=== PATIENT | male | born 1985 | race Hispanic/Latino ===

== ENCOUNTER 2019-02-22 01:04 | Emergency (ER) | payer SELFPAY ==
[2019-02-22] MEDS ORDERED: Adacel (T-DAP) 0.5 ML SYRINGE ONE (01:13)
[2019-02-22] MEDS ORDERED: Proparacaine 0.5% Opth 15 ML BOT ONE (01:13)
[2019-02-22] MEDS ORDERED: Fluorescein Opthalmic Strip ONE (01:13)
--- NOTE | 2019-02-22 07:45 | CT ---
CT Facial Bones WO Con History: [Glass foreign body in eye.] Comparison: None. Findings: No radiopaque foreign object is appreciated. There is abnormal hydration of the right lens relative to the left lens. There is asymmetric enlargement of the anterior chamber of the right eye relative to the left eye. Impression: Abnormally hydrated right lens relative to the left may be post traumatic in nature. There is also ab normal enlargement of the anterior chamber right eye relative to the left eye. Ophthalmologic consultation is strongly advised. These findings are discordant with the preliminary report. Code: Jeremiah
== END 2019-02-22 02:07 | disposition short-term general hospital (02) ==
LOC: ERS 01:04
DX: S05.51XA Penetrating wound with foreign body of right eyeball, initial encounter (principal); F17.200 Nicotine dependence, unspecified, uncomplicated; W45.8XXA Other foreign body or object entering through skin, initial encounter
CPT/HCPCS: 70486; 90471; 90715; 96365; J0690

== ENCOUNTER 2019-03-22 03:03 | Emergency (ER) | payer SELFPAY ==
[2019-03-22] MEDS ORDERED: Bacitracin 1 PK ONE (03:20)
--- NOTE | 2019-03-22 07:50 | CT ---
PRELIMINARY REPORT/[facility]/EMERGENCY AFTER HOURS PROCEDURE: EXAM: CT Head Without Contrast EXAM DATE/TIME: 03/22/2019 3:31 AM CLINICAL HISTORY: 33 years old, male; Injury or trauma; Fall; Initial encounter; Blunt trauma (contusions or hematomas) ; Patient HX: 33 y/o m presents to ED C/O injury caused by broken window. PT states he was knocking on a window at his house, which caused the break and cut his L arm. He also notes that he fe ll as the glass broke, hitting his head on a nearby chair. He suspects loc though is not sure. Family did not witness the event. TECHNIQUE: Imaging protocol: Axial computed tomography images of the head without contrast. COMPARISON: No relevant prior studies available. FINDINGS: Brain: Normal. No hemorrhage. Unremarkable white matter. No mass effect. Ventricles: Normal. No ventriculomegaly. Bones/joints: Unremarkable. No acute fracture. Sinuses: Visualized sinuses are unremarkable. No fluid levels. Mastoid air cells: Visualized mastoid air cells are well aerated. No mastoid effusion. Soft tissues: Unremarkable. IMPRESSION: No acute intracranial abnormality. Thank you for allowing us to participate in the care of your patient. Dictated and Authenticated by: Jose Alves MD 03/22/2019 3:40 AM Central Time ([place] & [place]) FINAL REPORT: Emergency after-hours study CT BRAIN NONCONTRAST: DATE: 03/22/2019. HISTORY: 33-year-old male status post acute head trauma, fall. FINDINGS: There is no evidence of acute intra-axial or extra-axial hemorrhage. There is no midline shift or any other mass effect. There is no extra-axial fluid collection. The ventricles are normal in size and configuration. The tympanomastoid cavities, and the upper portions of the paranasal sinuses included in these images, are grossly clear. Calvarium is intact. Agree with preliminary report by [facility]. IMPRESSION: Normal. Transcribed Date/Time: 03/22/2019 8:03 AM
--- NOTE | 2019-03-22 08:21 | RAD ---
Radiograph left forearm 2 views: HISTORY: Laceration FINDINGS: No radiopaque foreign body or subcutaneous emphysema. No fracture or any other osseous abnormality in volving radius or ulna. IMPRESSION: Negative
== END 2019-03-22 04:10 | disposition home or self-care (01) ==
LOC: ERS 03:03
DX: S51.812A Laceration without foreign body of left forearm, initial encounter (principal); S09.90XA Unspecified injury of head, initial encounter; F10.129 Alcohol abuse with intoxication, unspecified; W25.XXXA Contact with sharp glass, initial encounter
CPT/HCPCS: 12001; 70450